=== PATIENT | female | born 1970 | race American Indian/Alaskan Native ===

== ENCOUNTER 2020-10-27 09:40 | Emergency (ER) | payer SELFPAY ==
[2020-10-27] MEDS ORDERED: KETOROLAC 60 MG/2 ML INJ IM ONE (12:19)
--- NOTE | 2020-10-27 12:26 | Emergency Department Report ---
ED Neck Pain/Injury HPI - General Chief Complaint: Neck Pain/Injury Stated Complaint: TINGLING THROBING PAIN IN NECK SHOULDER LT ARM Time Seen by Provider: 10/27/20 12:02 Mode of arrival: Ambulatory Limitations: No Limitations - History of Present Illness Initial Comments: Patient is 49 years old female with history of hypertension. Patient presented to the ER complaining of neck pain, left shoulder pain that radiated down to her left arm. Patient stated that pain started 2 weeks ago. Patient think this is most likely related to lifting heavy stuff. Patient denied any chest pain or back pain. No shortness of breath. No fever or chills. MD Complaint: neck pain -: week(s) Place: home Quality: sharp Consistency: constant Worsens With: immobilization Treatments Prior to Arrival: Acetaminophen, Naproxen - Related Data Allergies Allergy/AdvReac Type Severity Reaction Status Date / Time No Known Allergies Allergy Unverified 10/27/20 10:53 ED Review of Systems ROS: Stated complaint: TINGLING THROBING PAIN IN NECK SHOULDER LT ARM Other details as noted in HPI Comment: All other systems reviewed and negative Constitutional: denies: chills, fever Respiratory: denies: cough, shortness of breath, SOB with exertion, SOB at rest Cardiovascular: denies: chest pain, palpitations Gastrointestinal: denies: abdominal pain, nausea, vomiting Musculoskeletal: denies: back pain Skin: denies: rash, lesions Neurological: denies: headache, weakness, numbness, paresthesias, confusion, abnormal gait ED Past Medical Hx - Past Medical History Previous Medical History?: Yes Hx Hypertension: Yes - Surgical History Past Surgical History?: Yes Additional Surgical History: - Social History Smoking Status: Never Smoker ED Physical Exam - General Limitations: No Limitations General appearance: alert, in no apparent distress - Head Head exam: Present: atraumatic, normocephalic, normal inspection - Eye Eye exam: Present: normal appearance, PERRL - ENT ENT exam: Present: normal exam, normal orophraynx, mucous membranes moist - Neck Neck exam: Present: normal inspection. Absent: tenderness, meningismus, full ROM, lymphadenopathy, thyromegaly - Respiratory Respiratory exam: Present: normal lung sounds bilaterally. Absent: respiratory distress, chest wall tenderness - Cardiovascular Cardiovascular Exam: Present: regular rate, normal rhythm, normal heart sounds - GI/Abdominal GI/Abdominal exam: Present: soft, normal bowel sounds. Absent: distended, tenderness, guarding, rebound, rigid, organomegaly, mass, pulsatile mass, hernia - Extremities Exam Extremities exam: Present: normal inspection, full ROM, normal capillary refill. Absent: tenderness, pedal edema, joint swelling, calf tenderness - Back Exam Back exam: Present: normal inspection, full ROM. Absent: CVA tenderness (R), CVA tenderness (L) - Neurological Exam Neurological exam: Present: alert, oriented X3, CN II-XII intact, normal gait, reflexes normal. Absent: motor sensory deficit - Psychiatric Psychiatric exam: Present: normal mood - Skin Skin exam: Present: warm, intact, normal color ED Course Vital Signs 10/27/20 10:53 Temperature 98.0 F Pulse Rate 80 Respiratory 18 Rate Blood Pressure 167/89 O2 Sat by Pulse 100 Oximetry ED Medical Decision Making - Radiology Data Radiology results: report reviewed - Medical Decision Making Patient is 49 years old female with history of hypertension. Patient presented to the ER complaining of neck pain, left shoulder pain that radiated down to her left arm. Patient stated that pain started 2 weeks ago. Patient think this is most likely related to lifting heavy stuff. Patient denied any chest pain or back pain. No shortness of breath. No fever or chills. Cervical x-ray is negative for acute finding however a show degenerative disc disease. Patient received Toradol 60 mg IM for pain. No evidence of weakness. Patient given prescription for Ultram and Zofran advised to follow-up with her primary doctor in the next 2 to 3 days and to return to the ER she develop any new symptoms. Critical care attestation.: If time is entered above; I have spent that time in minutes in the direct care of this critically ill patient, excluding procedure time. ED Disposition Clinical Impression: Acute neck pain, Cervical radiculopathy Disposition: HOME / SELF CARE / HOMELESS Is pt being admited?: No Condition: Stable Instructions: Cervical Radiculopathy, [id number] Referrals: PRIMARY CARE, [Primary Care Provider] - 3-5 Days
--- NOTE | 2020-10-27 13:02 | XRay Report ---
Cervical spine 5 views INDICATION: Neck injury FINDINGS: Degenerative change and mild straightening of the spine. Endplate changes with anterior dis c osteophytes C4-C5 and C5-C6. No subluxation is seen. Cervicothoracic junction appears normal. Odont oid appears intact. IMPRESSION: Discogenic degenerative change. Signer Name: Efrain Muñoz MD Signed: 10/27/2020 12:58 PM Workstation Name: [id number]
[2020-10-27 14:03] VITALS: BP 158/86
== END 2020-10-27 14:02 | disposition home or self-care (01) ==
LOC: ED 09:40
DX: M54.12 Radiculopathy, cervical region (principal); I10 Essential (primary) hypertension; M25.512 Pain in left shoulder; Z79.899 Other long term (current) drug therapy; Z98.890 Other specified postprocedural states
CPT/HCPCS: 72040; 96372; 99283; J1885